=== PATIENT | male | born 1995 | race Caucasian/White ===

== ENCOUNTER 2022-01-20 01:35 | Emergency (ER) | payer BC ==
[~2022-01-20] VITALS: Ht 172.7 cm; Wt 61.2 kg
[2022-01-20 01:48] VITALS: BP 133/90
--- NOTE | 2022-01-20 02:21 | NUR ---
Patient taken to bed 11.
--- NOTE | 2022-01-20 02:24 | NUR ---
Ashlee Kamara examining patient
--- NOTE | 2022-01-20 02:24 | NUR ---
DR. FOSTER AT BEDSIDE.
--- NOTE | 2022-01-20 02:31 | NUR ---
XRAY AT BEDSIDE
--- NOTE | 2022-01-20 02:42 | NUR ---
Patient discharged with v/s stable. Written and verbal after care instructions given and explained. Patient verbalized understanding. Ambulatory with steady gait. All questions addressed prior to discharge. Advised to follow up with PMD.
[2022-01-20 02:43] VITALS: BP 128/68
== END 2022-01-20 02:43 | disposition home or self-care (01) ==
LOC: MED 01:35
DX: R06.4 Hyperventilation (principal); F41.9 Anxiety disorder, unspecified
CPT/HCPCS: 71045; 99283; Q0092